=== PATIENT | female | born 1995 | race African-American/Black ===

== ENCOUNTER 2018-04-25 04:43 | Emergency (ER) | payer BC, MEDICAID, OTHER ==
[2018-04-25] MEDS ORDERED: ONDANSETRON 4 MG TAB.RAPDIS PO ONE (06:03)
--- NOTE | 2018-04-25 06:04 | ER Document Report ---
ED General - General Chief Complaint: Headache Stated Complaint: HEADACHE Time Seen by Provider: 04/25/18 05:56 Notes: Patient is a 23-year-old female that presents to the emergency department for chief complaint of headache, chills, body aches. Patient states that yesterday late afternoon she started having body aches, back pain, nausea and had one episode of vomiting. She also is having chills, and subjective fever but did not take her temperature at home. She did take Tylenol, which did not seem to help the headache, which she describes as over the frontal aspect, and over her zygoma, as an aching sensation, 3 out of 10, she also took Motrin but this is when she had her episode of vomiting. Denies sick contacts that she is aware of , she thinks she may have the flu. She denies having any diarrhea, abdominal pain, chest pain, does admit to having a mild cough. She is otherwise healthy, no other complaints at this time. Past Medical History: Denies chronic medical conditions Past Surgical History: Denies surgical history Social History: Admits to occasional alcohol use, denies tobacco or drug use. Family History: Reviewed and noncontributory for presenting illness Allergies: Reviewed, see documented allergy list. REVIEW OF SYSTEMS: Unless otherwise stated in this report the patient's positive and negative responses for review of systems for constitutional, eyes, ENT, cardiovascular, respiratory, gastrointestinal, neurological, genitourinary, musculoskeletal, and integumentary systems and related systems to the presenting problem are either as stated in the HPI or were not pertinent or were negative for the symptoms and/or complaints related to the presenting medical problem. PHYSICAL EXAMINATION: Vital signs reviewed, nursing noted reviewed. GENERAL: Well-appearing, well-nourished and in no acute distress. HEAD: Atraumatic, normocephalic. EYES: Eyes appear normal, extraocular movements intact, sclera anicteric, conjunctiva are normal. ENT: nares patent, oropharynx clear without exudates. Moist mucous membranes. Mild tenderness to palpation over the frontal sinuses. NECK: Normal range of motion, supple without lymphadenopathy LUNGS: Breath sounds clear to auscultation bilaterally and equal. No wheezes rales or rhonchi. HEART: Regular rate and rhythm without murmurs ABDOMEN: Soft, nontender, normoactive bowel sounds. No rebound, guarding, or rigidity. No masses appreciated. EXTREMITIES: Nontender, good range of motion, no pitting or edema. NEUROLOGICAL: No focal neurological deficits. Moves all extremities spontaneously Motor and sensory grossly intact on exam. PSYCH: Normal mood, normal affect. SKIN: Warm, Dry, normal turgor, no rashes or lesions noted on exposed skin TRAVEL OUTSIDE OF THE [place] IN LAST 30 DAYS: No - Related Data Allergies/Adverse Reactions: amoxicillin [Amoxicillin] Allergy (Intermediate, Verified 12/07/11 18:30) Hives Past Medical History - Social History Smoking Status: Never Smoker Family History: Reviewed & Not Pertinent Physical Exam - Vital signs Vitals: Temp Pulse Resp BP Pulse Ox 98.3 F 71 16 126/75 H 100 04/25/18 04:47 04/25/18 04:47 04/25/18 04:47 04/25/18 04:47 04/25/18 04:47 Course - Re-evaluation Re-evalutation: Patient seen and examined vital signs reviewed. Laboratory data and imaging were ordered as appropriate for the patient's presenting symptoms and complaint, with consideration of any critical or life threatening conditions that may be associated with their obtained history and exam as noted above. Patient was treated with Zofran, and Fioricet Results were reviewed when available and demonstrated negative hCG, unremarkable UA, negative influenza testing The patient was re-evaluated and was improved Evaluation was most consistent with viral illness, cephalgia Results were discussed with the patient at this point, after careful consideration I feel that that patient can be discharged from the emergency department, the patient was educated treatments and reasons to return to the emergency department based on their presumed diagnosis as noted above, they were advised to followup with a primary care physician in 2-3 days. Patient was agreeable to plan of care. *Note is created using voice recognition software and may contain spelling, syntax or grammatical errors. - Vital Signs Vital signs: Temp Pulse Resp BP Pulse Ox 98.3 F 71 16 126/75 H 100 04/25/18 04:47 04/25/18 04:47 04/25/18 04:47 04/25/18 04:47 04/25/18 04:47 - Laboratory Laboratory results interpreted by me: 04/25/18 06:26 Urine Urobilinogen 2.0 H Discharge - Discharge Clinical Impression: Viral illness Cephalgia Qualifiers: Headache type: unspecified Headache chronicity pattern: acute headache Intractability: not intractable Qualified Code(s): R51 - Headache Condition: Stable Disposition: HOME, SELF-CARE Instructions: Viral Syndrome ([facility]) Additional Instructions: Please return to the emergency department if you have any worsening, or concern of your symptoms. Please return to the emergency department if you develop chest pain, difficulty breathing, severe abdominal pain, or ongoing vomiting. Please follow-up with your primary care physician in 2-3 days and any other recommended physicians. If prescribed, take all medications as directed. If you have any questions or concerns do not hesitate to return the emergency department for evaluation. Prescriptions: Butalb/Acetaminophen/Caffeine [Fioricet (50-325-40 mg) Tablet] 1 tab PO Q6HP PRN #6 tab PRN Reason: headache Ondansetron [Zofran Odt 4 mg Tablet] 1 tab PO Q6H PRN #15 tab.rapdis PRN Reason: For Nausea/Vomiting Referrals: COLLETTE SEGAL MD [ACTIVE STAFF] - Follow up in 3-5 days (or your primary care)
[2018-04-25 06:43] LABS: APPEARANCE,URINE CLEAR; BILIRUBIN,URINE NEGATIVE (NEGATIVE); COLOR,URINE YELLOW; GLUCOSE, URINE NEGATIVE (NEGATIVE); KETONES,URINE NEGATIVE (NEGATIVE); LEUKOCYTE ESTERASE,URINE NEGATIVE (NEGATIVE); NITRITE,URINE NEGATIVE (NEGATIVE); PROTEIN,URINE NEGATIVE (NEGATIVE); URINE SPECIFIC GRAVITY 1.024
[2018-04-25] MEDS ORDERED: BUTALB/ACETAMINOPHEN/CAFFEINE 1 TAB EACH PO ONE (06:53)
[2018-04-25 07:04] LABS: A TYPE INFLUENZA AG NEGATIVE (NEGATIVE); B INFLUENZA AG NEGATIVE (NEGATIVE)
[2018-04-25 08:36] VITALS: BP 100/58
== END 2018-04-25 08:36 | disposition home or self-care (01) ==
LOC: ER 04:43
DX: B34.9 Viral infection, unspecified (principal); R51 Headache; M79.1 Myalgia; Z88.0 Allergy status to penicillin
CPT/HCPCS: 99284; 81025; 81001; 87804; J3490; S0119